=== PATIENT | male | born 1995 | race Caucasian/White ===

== ENCOUNTER 2016-09-03 14:53 | Emergency (ER) | payer OTHER ==
[~2016-09-03] VITALS: Ht 177.8 cm; Wt 85.0 kg
[2016-09-03 15:06] VITALS: Ht 177.8 cm; Wt 85.0 kg
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
[2016-09-03] MEDS ORDERED: AMPICILLIN/SULBACTAM SOD INJ 3,000 MG in SODIUM CHLORIDE 0.9% 100ML 100 ML IV STA (16:36)
[2016-09-03] MEDS ORDERED: ONDANSETRON INJ 2 MG/ML 2 ML VIAL IV STA (16:36)
[2016-09-03] MEDS ORDERED: MoRPHine SULFATE 4 MG/ML 1 ML CARP\\VIAL IV STA ×4 (16:36→21:03)
[2016-09-03 17:15] LABS: BASO % 0.2 %; BASO ABS # 0.03 K/uL (0-0.2); COMPLETE YES; HEMATOCRIT 46.3 % (42-52); IG% 0.3 %; LYMPH % 10.3 %; LYMPH ABS # 1.53 K/uL (1.2-3.4); MEAN CELL VOLUME 88.9 fL (80-100); MEAN CORPUSCULAR HEMOGLOBIN 31.5 pg (25-34); MEAN CORPUSCULAR HGB CONC 35.4 g/dl (32-36); MEAN PLATELET VOLUME 8.7 fL (7.4-10.4); MONO % 7.4 %; NEUT % 81.8 %; PLATELET COUNT 363 K/uL (130-400); RED BLOOD COUNT 5.21 M/uL (4.7-6.1)
[2016-09-03 17:37] LABS: BUN/CREATININE RATIO 9.7 (10-20); POTASSIUM 3.9 mmol/L (3.5-5.1)
[2016-09-03 18:07] VITALS: TEMP 36.9
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
[2016-09-03 21:14] VITALS: BP 140/93; PULSE 92; O2SAT 96
--- NOTE | 2016-09-04 00:37 | EMERGENCY ROOM VISIT NOTE ---
ED Visit Note First contact with patient: 15:12 Care of this patient was signed over to me by Winston Ceja PA-C at change of shift. The patient was evaluated multiple times while awaiting transportation. He did require an additional 4 mg of morphine IV for pain. I evaluated the patient just prior to his departure and his mother was very concerned about pain during the ride. I did agree to give the patient an additional 4 mg morphine IV prior to discharge. The patient and his mother were both agreeable to this treatment plan. They verbalized understanding and the patient was discharged to be transferred by private vehicle to a tertiary care center.
== END 2016-09-03 21:14 | disposition short-term general hospital (02) ==
LOC: C.EDB 14:57
DX: S02.602B Fracture of unspecified part of body of left mandible, initial encounter for open fracture (principal); Y04.2XXA Assault by strike against or bumped into by another person, initial encounter; Z98.818 Other dental procedure status